=== PATIENT | male | born 1985 | race Caucasian/White ===

== ENCOUNTER 2024-08-30 18:46 | Emergency (ER) | payer OTHER, BC, SELFPAY ==
[2024-08-30 18:52] VITALS: BP 145/78; PULSE 73; RESP 18; TEMP 36.8; O2SAT 99; BMI 28.2
[2024-08-30] MEDS: LIDOCAINE/EPINEP/TETRACAINE 3 ML GEL..ML. TOPICAL (19:05)
--- OUTSIDE RECORDS SUMMARY | 2024-08-30 19:33 | XMS_ITS | Clinical Summary ---
Author Organization [facility] Address [address] [place] [address]. [place] [address] Care Team Providers Care Gas Manager Name Role Phone Jovan Jones MD Primary Care Provider + [phone] Allergies No known active allergies Medications * This document contains information received from the source organization and may not represent a complete record from that organization. EPINEPHrine (EPIPEN) 0.3 MG/0.3ML injection Inject 0.3 mLs (0.3 mg) into the muscle once as needed for anaphylaxis 1 each 0 4 Active Additional Information Patient not taking.Reported on 03/28/2023 Active Problems No known active problems Family History Medical History Relation Comments Substance Abuse Mother Relation Status Comments Brother Alive Father Alive Maternal Grandfather Maternal Grandmother Mother Alive Paternal Grandfather Paternal Grandmother Social History Tobacco Use Types Packs/Day Years Used Date Smoking Tobacco: Never Smokeless Tobacco: Never Tobacco Cessation:Counseling Given: Not Answered Alcohol Use Standard Drinks/Week Comments Yes 0 (1 standard drink = 0.6 oz pur e alcohol) occ PHQ-2 Answer Date Recorded PHQ-2 Score 0 03/28/2023 Adolescent Education Answer Date Record ed Getting School Help Needed Not on file 03/19 Sex and Gender Information Value Date Recorded Sex Assigned at Male 03/28/2023 11:23 AM CDT 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 Gender Identity Male 03/28/2023 11:23 AM CDT Sexual Orientation Straight 03/28/2023 11 :23 AM CDT Last Filed Vital Signs Vital Sign Reading Time Taken Comments Blood Pressure 136/77 04/03/2024 8:32 PM CDT Pulse 96 04/03/2024 8:32 PM CDT Temperature 36.8 C (98.2 F) 04/03/2024 8:32 PM CDT Respiratory Rate 16 04/04/2024 1:01 AM CDT Oxygen Saturation 99% 04/03/2024 8:32 PM CDT Inhaled Oxygen Concentration - - Weight 93 kg (205 lb) 03/28/2023 10:42 AM CDT Height 188 cm (6' 2) 03/28/2023 10:42 AM CDT Body Mass Index 26.32 03/28/2023 10:42 AM CDT Plan of Treatment Health Maintenance Due Date Last Done Comments ADVANCE CARE PLANNING 1985 ANNUAL REVIEW OF HM ORDERS 1987 YEARLY PREVENTIVE VISIT 1990 HIV SCREENING 2002 HEPATITIS C SCREENING 2005 HEPATITIS B IMMUNIZATION (1 of 3 - 19+ 3-dose series) 2006 DTAP/TDAP/TD IMMUNIZATION (2 - Tdap) 08/02/2007 08/01/2007 COVID-19 Vaccine (3 - 2023-2 5 season) 2024 01/13/2021, 12/23/2020 INFLUENZA VACCINE (#1) 2024 PHQ-2 (once per calendar year) 2024 03/28/2023, 03/28/2023 DIABETES SCREENING 04/03/2027 04/03/2024 ZOSTER IMMUNIZATION (1 of 2) 2037 HPV IMMUNIZATION Aged Out No longer e ligible based on patient's age to complete this topic MENINGITIS IMMUNIZATION Aged Out No l onger eligible based on patient's age to complete this topic Pneumococcal Vaccine: Pediatrics (0 to 5 Years) and At-Risk Patients (6 to 49 Years) Aged Out No longer eligible b ased on patient's age to complete this topic Procedures Procedure Name Priority Date/Time Associated Diagnosis Comments BASIC METABOLIC PANEL STAT 04/03/2024 4:39 PM CDT from Last 3 Months or Most Recently Relevant to Health Maintenance Results * (ABNORMAL) Basic metabolic panel (BMP) (04/03/2024 4:39 PM CDT) Sodium 139 135 - 145 mmol/L 04/03/2024 5:07 PM CDT LABORATORY Potassium 3.7 3.4 - 5.3 mmol/L 04/03/2024 5:07 PM CDT LABORATORY Chloride 99 98 - 107 mmol/L 04/03/2024 5:07 PM CDT LABORATORY Carbon Dioxide (CO2) 18(L) 22 - 29 mmol/L 04/03/2024 5:07 PM CDT LABORATORY Anion Gap 22(H) 7 - 15 mmol/L 04/03/2024 5:07 PM CDT LABORATORY Urea Nitrogen 10.8 6.0 - 20.0 mg/dL 04/03/2024 5:07 PM CDT LABORATORY Creatinine 0.77 0.67 - 1.17 mg/dL 04/03/2024 5:07 PM CDT LABORATORY GFR Estimate >90 >60 mL/min/1.7 3m2 04/03/2024 5:07 PM CDT [facility] Comment:eGFR calculated usin 2020 CKD-EPI equation. Calcium 8.4(L) 8.8 - 10.4 mg/dL 04/03/2024 5:07 PM CDT [facility] Comment:Reference intervals for this test were updated on 12/18/2023 to reflect our healthy population more accurately. There may be differences in the flagging of prior results with similar values performed with this method. Those prior results can be interpreted in the context of the updated reference intervals. Glucose 86 70 - 99 mg/dL 04/03/2024 5:07 PM CDT LABORATORY Blood STRUCTURE OF RIGHT UPPER LIMB / Unknown Venipuncture / Unknown 04/03/2024 4:39 PM CDT 04/03/2024 4:43 PM CDT us Annia Richards MD LAB - BLOOD ORDERABLES Final Result LABORATORY [facility] [address] [facility] (1st floor, no room number) [place] [address], [facility] from Last 3 Months or Most Recently Relevant to Health Maintenance Insurance [place] Care Teams Gas Manager Relationship Specialty [place] [address] [place] [address] PCP - General Family Practice 10/13/13
--- OUTSIDE RECORDS SUMMARY | 2024-08-30 19:33 | XMS_ITS | Encounter Summary ---
Author Organization [facility] Address [address] [place] [address]. [place] [address] Care Team Providers Care Bit Tapper Name Role Phone Jovan Jones MD Primary Care Provider + [phone] Reason for Visit * Reason Onset Date Comments CD Outpatient 03/19/2023 Eval/Assessment 03/19/2023 Encounter Details Date Type Department Care Team ([facility] Contact Info) Description 03/19/2023 Telephone [facility] Behavioral Health Intake [address] [place] [id number] Generic, Behavioral Intake, CD Outpatient; Eval/Assessment Social History Tobacco Use Types Packs/Day Years Used Date Smoking Tobacco: Never Alcohol Use Standard Drinks/Week Comments Yes 0 (1 standard drink = 0.6 oz pur e alcohol) occ Adolescent Education Answer Date Record ed Getting School Help Needed Not on file 03/19 Sex and Gender Information Value Date Recorded Sex Assigned at Male 03/28/2023 11:23 AM CDT 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 Nicole Gaytan, Patient Navigator [phone] * Telephone Encounter - Nicole Gaytan - 03/28/2023 1:44 PM CDT 03/28/2023 Securely emailed MARU Assessment to [facility] Probation (E: [email or web address] Informed pt and confirmed email address to forward nurse manager's recommendations with link for [facility] DWI class. Nicole Gaytan, Patient Navigator [phone] * Telephone Encounter - Dori Guerra LADC - 03/28/2023 12:14 PM CDT Customer Complaint Clerk Summary of Patient Care Communication Handoff to Patient Navigator Coordinator PATIENT'S NAME: Arnoldo Jones : 1985 DATE OF SERVICE: 03/19/23 Client Population Served: DWI What is the primary referral indicator (helps select tracks for patients - ALL PROGRAMS PLEASE FILLOUT)? DWI If Referring to Adult Programmatic Care - what is the preference for programming (afternoon/morning)? NA Is this a Lodging Plus Referral? No (If yes, complete .LPSCREEN) Diagnostic Assessment/Comprehensive Assessment was completed: Yes Are there any potential barriers for entrance into programmatic care (ALL PROGRAMS PLEASE FILL OUT)? Level of Care Recommendations: Other Referrals Needed: Follow all requirements of the court and probation. Complete the Level 1 DWI class.[email or web address] If drinking alcohol, follow the National [place] on Alcohol Abuse and Alcoholism guidelines for men, consuming no more no more than 14 standard drinks/week, with no more than 4 of the 14 on any oneday. If drinking alcohol, do not drink and drive. Should you struggle with alcohol abuse or drug abuse in the future, consider an updated assessment and a higher level of care. No further action is needed at this time. Specialty Airline Station Agent Referral Needed: No Mental Health Referral Needed: No Release of Information Needed: No [facility]: [facility]. Follow up Requests: Patient Navigator Coordinator Follow-Up Needed: Other: Please FAX MARU Assessment to his PO. Could you please call this pt when his evaluation is FAXed to his PO and also let him know the recommendations including the DWI class with the [place] class website? Thanks! Comments: SHYANN Waggoner Patient Navigator Coordinator Contact Information Pool Message: [email or web address] ([id number]) Email: [email or web address] * Telephone Encounter - Nicole Gaytan - 03/23/2023 2:03 PM CDT Substance Use Evaluation Intake Form Demographic Information Patient's legal name: Arnoldo Jones Patient's preferred/chosen name: Arnoldo Patient's pronouns: He/Him Last 4 of SSN: [id number] Insurance: [facility] PMI: N/A Date of eval: 03/28/2023 Emergency contact: no Does the patient have a legal guardian (if so, phone number for guardian about placement): No Applicable guardianship and decision making information was sent to honoring choices: No Does the patient have a psychiatric advance directive: No Appointment Information Who is recommending/reason for appointment: did not ask homicide squad commanding officer/ HPSP / other entity that might need assessment: no Drug of Choice: did not ask Have you ever had a MARU assessment (when/where): no Any MARU treatment history: no Service information Primary Care Provider: [facility] Mental Health Providers: no Are there MH concerns: No Where is the patient in the care system: Pt is in the community and self referred. Has consent been obtained for Care Everywhere: No Advised patient/guardian that appt may take up to 120 min: Yes Reminder to arrive 15 minutes early: Yes Is there an active my chart: No Have pre-visit forms been sent: No Would you like another reminder call: no * Telephone Encounter - Zeke Myers January - 03/19/2023 10:38 AM CDT Pt is a(n) adult (18+ out of HS) Seeking as eval for Adult MARU Assessment for evaluation and recommendations.. Appointment scheduled by: Patient. (self-pay - complete Cost Estimate) Caller name: Patient Caller phone #: Yes Legal Guardianship Reviewed? No Honoring Choices Notified? No Brief reason for appt: Listed above Chief Engineer'S Helper needed? NO Contact information verified/updated: Yes Zeke January Lucia documented in this encounter Plan of Treatment Not on file documented as of this encounter Visit Diagnoses Not on filedocumented in this encounter Care Teams Bit Tapper Relationship Specialty [place] [address] [place] [address] PCP - General Family Practice 10/13/13 documented as of this encounter
[2024-08-30 20:08] VITALS: BP 135/68; PULSE 75; RESP 18; TEMP 36.8; O2SAT 99
--- NOTE | 2024-08-30 20:49 | ED_ITS ---
HPI - Wound/Laceration General Date Seen: 08/30/24 Chief Complaint: Laceration/Wound Stated Complaint: L ring finger lac Time Seen by Provider: 08/30/24 18:49 Source: patient and family Mode of arrival: ambulatory Limitations: no limitations History of Present Illness HPI narrative: Patient is a very nice 39-year-old gentleman who presents here with his significant other after he cracked a wine glass stem, with a laceration to his left ring finger. Occurred on lateral part of the finger between his PIP and PIP joint. No numbness and tingling, bled a little bit, and came in for defini tive management, denies any other complications. Other than his tetanus being up-to-date, Place: work Patient tetanus UTD: No Context: accidental Associated symptoms: none Review of Systems Status of ROS: Reports: 6 or more systems reviewed and unremarkable except as noted in History and below [facility] Medical History No significant past medical history Surgical History No significant past surgical history Social History Smoking Status: Never smoker Second hand tobacco smoke exposure: No How often do you have a drink containing alcohol: never AUDIT-C Alcohol total score: 0 Non-prescribed substance use: denies use Exam Narrative: Exam Narrative: Examination reveals a fit healthy gentleman, examination is ring finger shows the saw tooth type 1.5 cm laceration, this slightly gaping, the lateral part he has good IP flexion of both his D IP and PIP joint sensations normal, cap refill normal, I offered him a couple different options including sutures, verses glue after discussion he wanted glue. This is glute after use of let, cleaned out with Hibiclens. The wound is found to be very superficial not involving any structures. He was given a stack finger splint also in advice and regarding the wound. Const: Vital Signs, click to edit/add: Vital Signs - 24 hr 08/30/24 18:52 08/30/24 20:08 08/30/24 20:08 Temperature 98.3 F 98.3 F 98.3 F Pulse Rate [Right Pulse Oximeter] 73 75 75 Respiratory Rate 18 18 18 Blood Pressure [Le ft Upper Arm] 145/78 H 135/68 135/68 Pulse Oximetry 99 99 Oxygen Delivery Me thod Room Air Room Air Documenting provider has reviewed patient's vital signs: yes Course Vital Signs Vital signs: Initial Vital Signs Temperature 98.3 F 08/30/24 18:52 Temperature Source Temporal Artery Scan 08/30/24 18:52 Pulse Rate 73 08/30/24 18:52 Respiratory Rate 18 08/30/24 18:52 Blood Pressure 145/78 H 08/30/24 18:52 Blood Pressure Mean 100 08/30/24 18:52 Blood Pressure Position Sitting 08/30/24 18:52 Pulse Oximetry 99 08/30/24 18:52 Oxygen Delivery Method Room Air 08/30/24 18:52 Vital Signs Temperature 98.3 F 08/30/24 18:52 Pulse Rate 73 08/30/24 18:52 Respiratory Rate 18 08/30/24 18:52 Blood Pressure 145/78 H 08/30/24 18:52 Pulse Oximetry 99 08/30/24 18:52 Oxygen Delivery Method Room Air 08/30/24 18:52 Temperature 98.3 F 08/30/24 20:08 Pulse Rate 75 08/30/24 20:08 Respiratory Rate 18 08/30/24 20:08 Blood Pressure 135/68 08/30/24 20:08 Pulse Oximetry 99 08/30/24 20:08 Oxygen Delivery Method Room Air 08/30/24 20:08 Medications Administered Medications: Discontinued Medications Generic Name Dose Route Start Last Admin Trade Name Freq PRN Reason Stop Dose Admin Lidocaine/Epinephrine/Tetracaine 3 ml 08/30/24 19:02 08/30/24 19:05 Lidocaine/Epinep/Tetracaine 3 Ml Gel..Ml. TOPICAL 08/30/24 19:03 3 ml ONCE ONE Administration Discharge Plan Discharge Clinical Impression: Laceration Patient Disposition: Home w/ Parent or Adult Condition: Improved Instructions: Laceration (DC) Additional Instructions: Home, rest, use of splint for the next 4-5 days, then you may take the splint off. Do not use any bacitracin on the wound, as this will cause it to break down least the glue. Increasing redness swelling signs of infections in please come back, you do need her tetanus shot updated, he can do this at any clinic, I would recommend you do this within the next 48 hours, even though that this is a low risk tetanus prone wound. Activity Level: Light activity Discharge Diet: Regular Follow Up/Referrals: Provider,Not a Local [Primary Care Provider] - Stand Alone Forms: MyHealth Info Instructions
== END 2024-08-30 20:09 | disposition home or self-care (01) ==
PROVIDERS: Emergency Provider Family Medicine
DX: S61.215A Laceration without foreign body of left ring finger without damage to nail, initial encounter (principal); W25.XXXA Contact with sharp glass, initial encounter
CPT/HCPCS: 12001; 99282; 99283